=== PATIENT | male | born 1960 | race Caucasian/White ===

== ENCOUNTER → 2016-11-08 | Outpatient (CLI) | payer SELFPAY | END | disposition home or self-care (01) | LOC: RAD 10:30 | DX: M17.12 Unilateral primary osteoarthritis, left knee (principal) | CPT/HCPCS: 73564 ==

== ENCOUNTER 2017-05-12 08:22 | Emergency (ER) | payer SELFPAY ==
[~2017-05-12] VITALS: Ht 165.1 cm; Wt 84.9 kg
[2017-05-12 06:08] VITALS: BP 133/80
[2017-05-12 07:26] LABS: HEMATOCRIT 24.2 % (38.0-50.0); MCH 28.9 PG (29.0-34.0); MCHC 33.1 G/DL (30.0-36.0); MCV 87.4 FL (86-99); MEAN PLAT.VOLUME 9.7 uM^3 (9.0-12.4); PLATELET COUNT 209 K/uL (156-360); RBC DIS.WIDTH-SD 40.3 % (39-53); RED BLOOD COUNT 2.77 M/uL (4.00-5.50); WHITE BLOOD COUNT 6.9 K/uL (4.1-10.2)
[2017-05-12 07:28] LABS: METH RESISTANT S AUREUS PCR NEGATIVE (NEGATIVE)
[2017-05-12 07:45] LABS: PROBE CHECK PASS; SPECIMEN PROCESSING CONTROL PASS
[~2017-05-12 08:22] MED LIST: ALEVE220 MG PO; CENTURY ADULTS1 EACH PO; COZAAR50 MG PO; FISH OIL 1,2001 EAC4 PO; LO-DOSE ASPIRIN81 M2 PO; RED YEAST RICE600 MG PO; VITAMIN C1000 MG PO; ZOCOR10 MG PO
[2017-05-12] MEDS ORDERED: ULTRAM50 MG PO (12:51)
[2017-05-12 13:27] VITALS: BP 130/86
== END 2017-05-12 13:28 | disposition home or self-care (01) ==
LOC: 2SOUTH → EME 08:22 → EDSTATUS 08:22 → EME 13:28 → 2SOUTH 14:08
PROVIDERS: Anesthesiology; Orthopaedic Surgery
DX: D64.9 Anemia, unspecified (principal); E78.5 Hyperlipidemia, unspecified; I10 Essential (primary) hypertension; M17.12 Unilateral primary osteoarthritis, left knee; Z79.82 Long term (current) use of aspirin; K21.9 Gastro-esophageal reflux disease without esophagitis; Z88.1 Allergy status to other antibiotic agents
CPT/HCPCS: 74177; 85027; 87641; 99281; 99285; J2250; J2405; J3010; J7050

== ENCOUNTER → 2017-05-29 | Outpatient (CLI) | payer SELFPAY ==
[~2017-05-29] VITALS: Ht 165.1 cm; Wt 83.5 kg
[~2017-05-29] MED LIST changes: +TUMS500 MG PO; +TYLENOL EXTRA500 MG PO; +ULTRAM50 MG PO; +VITAMIN E400 UNIT PO
== END | disposition home or self-care (01) ==
LOC: AMB 13:00
DX: Z12.11 Encounter for screening for malignant neoplasm of colon (principal); D64.9 Anemia, unspecified; D12.4 Benign neoplasm of descending colon; K64.8 Other hemorrhoids; K22.10 Ulcer of esophagus without bleeding; K26.9 Duodenal ulcer, unspecified as acute or chronic, without hemorrhage or perforation; K29.70 Gastritis, unspecified, without bleeding; K44.9 Diaphragmatic hernia without obstruction or gangrene; K29.80 Duodenitis without bleeding; I10 Essential (primary) hypertension; Z79.82 Long term (current) use of aspirin; Z79.1 Long term (current) use of non-steroidal anti-inflammatories (NSAID); Z88.0 Allergy status to penicillin
CPT/HCPCS: 88305; 88342 TC; J2250; J3010

== ENCOUNTER → 2017-07-24 | Outpatient (CLI) | payer OTHER ==
[~2017-07-24] VITALS: Ht 165.1 cm; Wt 81.6 kg
[~2017-07-24] MED LIST changes: +NEURONTIN600 MG PO; +PRILOSEC OTC20 MG PO
== END | disposition home or self-care (01) ==
LOC: AMB 13:00
DX: K44.9 Diaphragmatic hernia without obstruction or gangrene (principal); K22.8 Other specified diseases of esophagus; I10 Essential (primary) hypertension; K21.9 Gastro-esophageal reflux disease without esophagitis; E78.00 Pure hypercholesterolemia, unspecified; Z88.0 Allergy status to penicillin
CPT/HCPCS: 88305; 88342 TC

== ENCOUNTER 2017-10-19 22:01 | Inpatient (IN) | payer SELFPAY ==
[~2017-10-19] VITALS: Ht 165.1 cm; Wt 86.5 kg
[~2017-10-19 22:01] MED LIST changes: +CENTRUM COMPLE1 EACH PO; +IRON325 M1 PO
[2017-10-20 09:26] VITALS: BP 157/92
[2017-10-20 14:57] LABS: HEMATOCRIT 36.2 % (38.0-50.0); HEMOGLOBIN 11.8 G/DL (12.5-16.6); MCH 26.5 PG (29.0-34.0); MCHC 32.6 G/DL (30.0-36.0); MCV 81.3 FL (86-99); PLATELET COUNT 185 K/uL (156-360); RBC DIS.WIDTH-CV 15.2 % (11.8-14.6); RBC DIS.WIDTH-SD 44.4 % (39-53); RED BLOOD COUNT 4.45 M/uL (4.00-5.50); WHITE BLOOD COUNT 6.4 K/uL (4.1-10.2)
[2017-10-20 15:51] VITALS: BP 113/72
[2017-10-20 19:41] VITALS: BP 121/65
[2017-10-21 00:30] VITALS: BP 129/68
[2017-10-21 04:00] VITALS: BP 148/83
[2017-10-21 05:30] LABS: HEMATOCRIT 34.5 % (38.0-50.0); HEMOGLOBIN 11.2 G/DL (12.5-16.6)
[2017-10-21 05:55] LABS: CHLORIDE 105 MEQ/L (99-109); GFR ESTIMATE (CALCULATED) > 59 mL/min/ (58.99-99999); GLUCOSE 144 mg/dL (70-99); POTASSIUM 4.3 MEQ/L (3.7-5.4); SODIUM 138 MEQ/L (136-147); UREA NITROGEN (BUN) 18 mg/dL (9-23)
[2017-10-21 08:05] VITALS: BP 135/80
[2017-10-21] MEDS ORDERED: ENDOCET 5-3251 EACH PO (08:12)
[2017-10-21] MEDS ORDERED: ELIQUIS2.5 MG PO (08:12)
[2017-10-21 12:12] VITALS: BP 155/86
[2017-10-21 15:43] VITALS: BP 146/82
[2017-10-21 20:17] VITALS: BP 149/80
[2017-10-22 00:08] VITALS: BP 155/89
[2017-10-22 04:19] VITALS: BP 149/84
[2017-10-22 07:26] LABS: HEMOGLOBIN 11.8 G/DL (12.5-16.6); MCV 80.2 FL (86-99)
[2017-10-22 08:24] VITALS: BP 136/77
[2017-10-22] MEDS ORDERED: ASPIRIN325 MG PO (10:46)
[2017-10-22 12:05] VITALS: BP 138/72
== END 2017-10-22 13:20 | DRG 470 ==
LOC: ENRESERV 22:01 → 3WEST 10-20 08:43 → 2SOUTH 10-20 08:43 → ENRESERV 10-20 10:02 → 3WEST 10-20 15:28 → 2SOUTH 10-20 15:42 → 3WEST 10-22 13:20
PROVIDERS: Orthopaedic Surgery
PROC: 0SRD0J9 Replacement of Left Knee Joint with Synthetic Substitute, Cemented, Open Approach (ICD-10-PCS; principal; 2017-10-20)
DX: M17.12 Unilateral primary osteoarthritis, left knee (principal); I10 Essential (primary) hypertension; E78.00 Pure hypercholesterolemia, unspecified
CPT/HCPCS: 36415; 73560; 80048; 80053; 85014; 85018; 85025; 85027; 85610; 85730; 86850; 86900; 86901; 87081; 93005; C1713; J0131; J1100; J1885; J2250; J2405; J2795; J3010; J7050; S0020